=== PATIENT | male | born 1985 | race Caucasian/White ===

== ENCOUNTER 2025-01-15 11:04 | Inpatient (IN) | payer OTHER ==
[2025-01-15 11:34] VITALS: BMI 32.3
[2025-01-15] MEDS ORDERED: guaiFENesin 600 MG TABLET.ER (FP) PO PRN (12:35)
[2025-01-15] MEDS ORDERED: IBUPROFEN 400 MG TABLET (FP) PO PRN (12:35)
[2025-01-15] MEDS ORDERED: BENZOCAINE/MENTHOL (CHLORASEPTIC ) LOZENGE MM PRN (12:35)
[2025-01-15] MEDS ORDERED: IBUPROFEN 600 MG TABLET (FP) PO PRN (12:35)
[2025-01-15] MEDS ORDERED: MAG HYDROX/AL HYDROX/SIMETH 30 ML UNIT-DOSE CUP PO PRN (12:35)
[2025-01-15] MEDS ORDERED: BENZONATATE 200 MG CAPSULE PO PRN (12:35)
[2025-01-15] MEDS ORDERED: MAGNESIUM HYDROX 2400MG/30ML ORAL SUSPENSION 30 ML CUP PO PRN (12:35)
[2025-01-15] MEDS ORDERED: hydrOXYzine PAMOATE 25 MG CAPSULE (FP) PO PRN (12:35)
[2025-01-15] MEDS ORDERED: ACETAMINOPHEN 325 MG TABLET (FP) PO PRN (12:35)
[2025-01-15] MEDS ORDERED: LOPERAMIDE HCL 2 MG CAPSULE PO PRN (12:35)
[2025-01-15] MEDS ORDERED: POLYETHYLENE GLYCOL (HEALTHYLAX) 3350 17 GM PACKET PO PRN (12:35)
[2025-01-15] MEDS ORDERED: NALOXONE (NARCAN) HCL 4 MG/0.1 ML SPRAY NS PRN (12:35)
[2025-01-15] MEDS ORDERED: TUBERCULIN PPD 5 TU/0.1ML VIAL ID ONE ×3 (16:59→17:49)
[2025-01-15] MEDS: TUBERCULIN PPD 5 TU/0.1ML SYRINGE (IN PATIENT USE ONLY) ID ONE (17:33)
[2025-01-15] MEDS: metFORMIN HCL 500 MG TABLET (FP) PO SCH (17:33)
[2025-01-15] MEDS: NALTREXONE HCL 50 MG TABLET PO ONE (18:30)
[2025-01-15] MEDS: OLANZapine 10 MG TABLET PO SCH (21:31)
[2025-01-15] MEDS: MELATONIN 5 MG TABLETS PO SCH (21:32)
[2025-01-15] MEDS: THIAMINE 100 MG TABLET PO SCH (21:32)
[2025-01-15] MEDS: traZODone HCL 50 MG TABLET (FP) PO SCH (21:32)
[2025-01-15] MEDS ORDERED: OLANZapine 10 MG TABLET PO SCH (22:00)
[2025-01-16] MEDS: NALTREXONE HCL 50 MG TABLET PO SCH (09:09)
[2025-01-16] MEDS: PRENATAL VITAMINS W/ FOLIC ACID TABLET (FP) PO SCH (09:09)
[2025-01-16] MEDS: amLODIPine BESYLATE 2.5 MG TABLET (FP) PO SCH (10:40)
[2025-01-16 11:11] LABS: HEMOGLOBIN 13.9 g/dL (13.7-17.5); MCHC 32.3 g/dl (32.3-36.5); MEAN CELL VOLUME 91.9 fl (79.0-92.2); MEAN PLT VOLUME 10.7 fl (9.4-12.4); PLATELET COUNT 286 x10^3/uL (163-337); RDW 12.2 % (12.0-15.6)
[2025-01-16 11:15] LABS: POTASSIUM 3.9 mmol/L (3.5-5.1)
[2025-01-16 11:20] LABS: ALBUMIN 3.9 g/dl (3.4-5.0); BLOOD UREA NITROGEN 10.6 mg/dL (7-18); CALCIUM 8.9 mg/dL (8.5-10.1)
[2025-01-16 11:25] LABS: BILIRUBIN,TOTAL 0.3 mg/dL (0.2-1)
[2025-01-16 11:29] LABS: TOT PROT 6.4 g/dl (6.4-8.2)
[2025-01-16] MEDS: PNEUMOC 20-VAL CONJ-DIP CRM/PF 0.5 ML SYRINGE IM ONE (11:52)
[2025-01-16] MEDS: CLOTRIMAZOLE 1% CREAM TP SCH (12:35)
[2025-01-16 14:01] LABS: SYPHILIS W/ RPR CONF NON-REACTIVE (NONREACTIVE)
[2025-01-16 14:35] LABS: HCV DIAGNOSTIC IN-HOUSE W/RFLX NON-REACTIVE (NONREACTIVE)
[2025-01-17 00:26] LABS: HIV INTERPRETATION NEGATIVE (NEGATIVE)
[2025-01-17 12:32] LABS: PH,URINE 5.5 (5.0-8.0); URINE APPEARANCE CLEAR; URINE BILIRUBIN NEGATIVE (NEGATIVE); URINE COLOR YELLOW; URINE GLUCOSE (UA) NEGATIVE (NEGATIVE); URINE KETONE NEGATIVE (NEGATIVE); URINE LEUK ESTERASE NEGATIVE (NEGATIVE); URINE NITRITE NEGATIVE (NEGATIVE); URINE PROTEIN NEGATIVE (NEGATIVE); URINE UROBILINOGEN 0.2 mg/dL (0.2-1.0)
[2025-01-18] MEDS: TRIMETHOBENZAMIDE HCL 200MG/2ML INJ IM ONE (02:56)
[2025-01-18] MEDS: NICOTINE POLACRILEX 2 MG GUM BUC PRN (16:02)
[2025-01-22 06:37] VITALS: RESP 16; TEMP 97.1
[2025-01-22 09:46] VITALS: BP 97/64; PULSE 78
== END 2025-01-22 14:15 | disposition left against medical advice (07) | DRG 770 ==
LOC: YASAS 11:04 → Y3E 13:25
PROVIDERS: ADMIT Psychiatry & Neurology Pain Medicine; ATTEND Psychiatry & Neurology Pain Medicine
PROC: HZ42ZZZ Group Counseling for Substance Abuse Treatment, Cognitive-Behavioral (ICD-10-PCS; principal; 2025-01-15)
DX: F14.20 Cocaine dependence, uncomplicated (principal); F10.20 Alcohol dependence, uncomplicated; F17.210 Nicotine dependence, cigarettes, uncomplicated; F19.282 Other psychoactive substance dependence with psychoactive substance-induced sleep disorder; F20.0 Paranoid schizophrenia; F41.8 Other specified anxiety disorders; E11.9 Type 2 diabetes mellitus without complications; Z79.84 Long term (current) use of oral hypoglycemic drugs; B35.6 Tinea cruris; B35.1 Tinea unguium
CPT/HCPCS: 36415; 80053; 80305; 80307; 81003; 82962; 83036; 85027; 86780; 86803; 87389; 87811; 90677; 93005; 93010